=== PATIENT | female | born 1980 | race Caucasian/White ===

== ENCOUNTER 2019-05-11 18:41 | Emergency (ER) | payer MEDICAID ==
[2019-05-11] MEDS ORDERED: Lidocaine 1% 20 ML MDV INFILT ONE (18:42)
[2019-05-11] MEDS ORDERED: Diphtheria,Pertussis(Acell),Tetanus Vaccine 0.5 ML SDV IM ONE (20:35)
--- NOTE | 2019-05-11 21:51 | EDM.PDOC ---
ED HPI GENERAL MEDICAL PROBLEM - General Chief Complaint: Laceration Stated Complaint: CUT HAND Time Seen by Provider: 05/11/19 19:30 Source of Information: Reports: Patient History Limitations: Reports: No Limitations - History of Present Illness INITIAL COMMENTS - FREE TEXT/NARRATIVE: opening a can tonight, cut her thumb on the lid of a [employer] baked beans. fairly deep laceration into pad of thumb, has bleed copiously. End of thumb feels slightly numb and tingly. Uncertain last tetanus. Able to move just fine, although quite painful. No other injury. Right-handed. left thumb Pain Score (Numeric/FACES): 5 - Related Data Allergies Allergy/AdvReac Type Severity Reaction Status Date / Time cephalexin Allergy Hives Verified 05/11/19 18:56 Home Meds: Home Meds Sulfamethoxazole/Trimethoprim [Bactrim Ds Tablet] 1 each PO BID #4 tablet [Rx] Past Medical History - Past Health History Medical/Surgical History: Denies Medical/Surgical History - Infectious Disease History Infectious Disease History: Reports: Chicken Pox, Measles Social & Family History - Family History Family Medical History: Noncontributory - Tobacco Use Smoking Status *Q: Current Every Day Smoker Years of Tobacco use: 22 Packs/Tins Daily: 0.5 - Caffeine Use Caffeine Use: Reports: Coffee - Recreational Drug Use Recreational Drug Use: No - Living Situation & Occupation Living situation: Reports: Occupation: Employed ED ROS GENERAL - Review of Systems Review Of Systems: ROS reveals no pertinent complaints other than HPI. ED EXAM, SKIN/RASH Exam: See Below Text/Narrative:: General: alert, pleasant, slightly pale appearing initially. Thumb- 1.5cm laceration 3-4mm above the joint crease, palmar surface in the pad. Underlying subcutanous tissue exposed, no tendons or other structures, no foreign bodies seen, bleeding. Able to flex and extend DIP of joint without difficulty. Rest of thumb and hand motions grossly normal. Sensation intact in distal tip of thumb although patient reports slight parasthesia. ED SKIN PROCEDURES - Laceration/Wound Repair Left Distal Digit - 1st (Thumb) Lac/Wound length In cm: 1.5 Appearance: Linear Distal NVT: Other (distal tingling, sensation present, no vascular compromise ) Anesthetic Type: Digital Local Anesthesia - Lidocaine (Xylocaine): 1% Plain Local Anesthetic Volume: 2cc Skin Prep: Chlorhexidine (Hibiciens), Saline Saline Irrigation (cc's): 150 Exploration/Debridement/Repair: Wound Explored, No Foreign Material Found Closed with: Sutures Suture Size: other (5-0) # of Sutures: 4 Suture Type: Nylon Sterile Dressing Applied: Nurse Tetanus Status Addressed: Yes Complications: No Progress/Comments: lidocaine wore off very quickly! Course - Vital Signs Text/Narrative:: initial impression - relatively deep laceration, concern for some superficial nerve damage given complaint of parasthesia. Sensation is intact although altered. No motor deficits. Underlying subcutanous tissue exposed but no deeper structures seen. Was a can lid, so discussed xray to make sure no foreign body. Last Recorded V/S: Last Vital Signs Temp 37.0 C 05/11/19 19:00 Pulse 75 05/11/19 22:00 Resp 16 05/11/19 22:00 BP 122/81 05/11/19 22:00 Pulse Ox 100 05/11/19 22:00 - Orders/Labs/Meds Orders: Active Orders 24 hr Category Date Time Status Vaccines to be Administered [RC] PER UNIT ROUTINE Care 05/11/19 20:35 Active Fingers Thumb Lt FA [CR] Stat Exams 05/11/19 19:57 Taken Meds: Medications Discontinued Medications Generic Name Dose Route Start Last Admin Trade Name Amado PRN Reason Stop Dose Admin Diphtheria/Tetanus/Acell Pertussis 0.5 ml 05/11/19 20:35 05/11/19 20:53 Adacel IM 05/11/19 20:36 0.5 ml .ONCE ONE Administration - Re-Assessments/Exams Free Text/Narrative Re-Assessment/Exam: xray reviewed, no foreign body seen. Laceration now hemostatic after pressure, and digital block performed with good effect. See procedure note. Free Text/Narrative Re-Assessment/Exam: lidocaine wearing off at end of stitches. Patient reports she has had this happen before, both for getting stitches and at dentist, and usually needs much higher doses of novocaine. after repair complete, she reports no changes in the distal sensation of her thumb--similar to prior to receiving stitching. recommended contact PCP in AM as may want to visit with specialist regarding nerve and sensation in that area. Discussed signs/symptoms of infection and all questions answered; she is in aggrement with this plan. Departure - Departure Time of Disposition: 21:46 Disposition: Home, Self-Care 01 Condition: Good Clinical Impression: Laceration - Discharge Information *PRESCRIPTION DRUG MONITORING PROGRAM REVIEWED*: Not Applicable *COPY OF PRESCRIPTION DRUG MONITORING REPORT IN PATIENT ELIZABETH: Not Applicable Prescriptions: Sulfamethoxazole/Trimethoprim [Bactrim Ds Tablet] 1 each PO BID #4 tablet Instructions: Laceration Care, Adult, [id number] Referrals: PCP,None [Primary Care Provider] - Forms: ED Department Discharge Additional Instructions: call PCP in the AM regarding possible need for followup with specialist about numbness in the tip of your thumb. Best is usually to see a hand specialist but they will know what is available in the area. can use ice prescription given for 2 days antibiotics to help prevent any infection. It may still swell some, but it should not have pus, red streaking up your thumb, or difficulty moving the joint. stitches out in 10 days keep covered with a bandage and ointment for the next 2 days at least - My Orders Last 24 Hours: My Active Orders 05/11/19 19:57 Fingers Thumb Lt FA [CR] Stat 05/11/19 20:35 Vaccines to be Administered [RC] PER UNIT ROUTINE - Assessment/Plan Last 24 Hours: My Active Orders 05/11/19 19:57 Fingers Thumb Lt FA [CR] Stat 05/11/19 20:35 Vaccines to be Administered [RC] PER UNIT ROUTINE
--- NOTE | 2019-05-12 10:36 | CR ---
INDICATION: Cut thumb on vegetable can - laceration. LEFT THUMB: Three views of the left thumb were obtained 05/11/19 and revealed evidence of soft tissue injury at the distal phalanx of the thumb. No underlying bone or joint abnormality of an acute nature is noted. There is some very minimal degenerative change at the interphalangeal joint of the thumb and to a slightly greater extent at the first metacarpophalangeal joint. IMPRESSION: No acute fracture or dislocation. [facility]
== END 2019-05-11 22:01 | disposition home or self-care (01) ==
LOC: FB.ED 18:41
DX: S61.012A Laceration without foreign body of left thumb without damage to nail, initial encounter (principal); F17.210 Nicotine dependence, cigarettes, uncomplicated; Z88.1 Allergy status to other antibiotic agents; Z23 Encounter for immunization; W26.8XXA Contact with other sharp object(s), not elsewhere classified, initial encounter
CPT/HCPCS: 12001; 73140; 90471; 90715; 99283; J2001; 12011